=== PATIENT | female | born 1990 ===

== ENCOUNTER 2016-11-01 21:40 | Emergency (ER) | payer MEDICAID ==
[2016-11-01 22:06] VITALS: BMI 32.3
--- NOTE | 2016-11-01 23:58 | OBHP ---
Datetime: 11/01/2016 22:25 IP Adm Impression: , intrauterine IP Admit Plan: Observation/Evaluation; Discharge home Admit Comment, IP Provider: 26y/o , EGA 32+2wks presents with complaints of vomiting and diarrhe a x 1 day. She is tolerating liquids -gatorade/juice. Feeling better at present. 'Just wanted to make sure everything was ok. 'Denies h/a, visual sx, dizziness. care [facility] next appt 2w...chart rev'd o: as above. tachycardia a: IUP at 32+2wks, with gastroenteritis that is resolved Patient feeling better, would like to go home. p: plenty of fluids BRAT diet discussed with patient. return to ED if sx worsen or continue. Nikolas Hartley PGY1 Ob hospitalist debbie. Pt was seen and examined by me.Agree with note. MAHNDO Pelvic Type - PN: Not Done Extremities - PN: Normal Abdomen - PN: Normal Back - PN: Normal Breast - PN: Normal Lungs - PN: Normal Heart - PN: Normal Thyroid - PN: Normal Neurologic - PN: Normal HEENT - PN: Normal General - PN: Normal FHR - Baseline A Provider: 140 Contraction Comments Provider: 0 Comments, ACOG Physical Exam: ROS: General: no weakness; no fatigue HEENT: no HOLGUIN; no visual dist CV: no palpitations; no no CP GI: noN/V no diarhea No epigastric pain; non radiating : no F/U/D MS: No joint pain IP Hx Assessment: The History has been Reviewed and is Current EGA AdmitDate IP: 32.2 Vital Signs Provider: Reviewed IP Chief Complaint: Illness NICHD Variability Prov Fetus A: Moderate 6-25bpm FHR Category Provider Fetus A: Category I NICHD Decel Fetus A IP Provider: None Genitourinary Exam: Normal DTRs - PN: Normal
--- NOTE | 2016-11-02 | OBDCSUM ---
Datetime: 11/01/2016 22:31 Discharged to, Provider: Home Follow up at, Provider: BRANDON Ortiz Instr Activity: Normal activity Disch Instr Diet: Regular Discharge Time: 11/01/2016 22:30 Follow up in weeks, Provider: November 15, 2016 Disch Referrals: None Disch Activity Restrictions: No lifting; No driving; No sexual activity; Nothing in vagina - Interco urse, tampons, douche Discharge Diagnosis Prov Other: Gastroenteritis
--- NOTE | 2016-11-03 14:25 | OBHP ---
Datetime: 11/03/2016 14:16 IP Adm Impression: , intrauterine ; No Active Labor IP Admit Plan: Observation/Evaluation Admit Comment, IP Provider: 26-year-old 010 at 32 weeks and 4 days gestational age presents to OB ED complaining of diarrhea and nausea and vomiting for approximately 3 days. Patient reports the symptoms have improved but patient reports episode of vomiting this morning. Patient states that over all she is able to keep food and fluids down. No contractions, vaginal bleeding, leakage of fluids. P renatal records reviewed. Otherwise, patient without complaints. Past medical history none Past surgical history none Medications vitamins No known drug allergies Obstetrical history elective termination of 1 Social history no tobacco, no drugs, no alcohol Physical exam: Deferred physical exam findings Assessment: 18-year-old at 32 weeks gestational age with symptoms of mild gastroenteritis. Both matern al well-being and well-being reassuring at this time. Plan: IV fluid hydration Check labs. Check CBC, CMP, UA, LDH, uric acid Continue observation Consider discharge home if patient remains stable and labs within normal limits. I discussed plan with patient and all patient questions answered. Pelvic Type - PN: Adequate Extremities - PN: Normal Abdomen - PN: Normal Back - PN: Normal Breast - PN: Normal Lungs - PN: Normal Heart - PN: Normal Thyroid - PN: Normal Neurologic - PN: Normal HEENT - PN: Normal General - PN: Normal FHR - Baseline A Provider: 120s Contraction Comments Provider: none Comments, ACOG Physical Exam: ROS: General: no weakness; no fatigue HEENT: no HOLGUIN; no visual dist CV: no palpitations; no no CP GI: noN/V no diarhea No epigastric pain; non radiating : no F/U/D MS: No joint pain IP Hx Assessment: The History has been Reviewed and is Current EGA AdmitDate IP: 32.4 Vital Signs Provider: Reviewed; Within Normal Limits IP Chief Complaint: Illness NICHD Variability Prov Fetus A: Moderate 6-25bpm NICHD Accel Fetus A IP Provider: 15X15 FHR Category Provider Fetus A: Category I NICHD Decel Fetus A IP Provider: None Genitourinary Exam: Normal DTRs - PN: Normal
== END 2016-11-01 22:40 | disposition home or self-care (01) ==
LOC: H.EROB2 21:40
DX: O26.93 Pregnancy related conditions, unspecified, third trimester (principal); K52.9 Noninfective gastroenteritis and colitis, unspecified; Z3A.32 32 weeks gestation of pregnancy

== ENCOUNTER 2016-11-03 12:09 | Emergency (ER) | payer MEDICAID ==
[2016-11-03 12:09] VITALS: BMI 32.3
[2016-11-03] MEDS ORDERED: Lactated Ringer's 1,000 ML IV SCH (15:45)
[2016-11-03 16:49] LABS: MEAN CELL VOLUME 82.5 fl (81.0-99.0); MEAN CORPUSCULAR HEMOGLOBIN 27.5 pg (27.0-31.0); MEAN CORPUSCULAR HGB CONC 33.3 g/dL (33.0-37.0); RED CELL DISTRIBUTION WIDTH 14.4 % (11.5-14.5); WHITE BLOOD COUNT 6.9 K/uL (4.8-10.8)
[2016-11-03 17:01] LABS: ALB/GLOB RATIO 1.1 (1.0-2.1); ALKALINE PHOSPHATASE 161 U/L (38-126); ALT/SGPT 53 U/L (9-52); AST/SGOT 64 U/L (14-36); BILIRUBIN,TOTAL 0.7 mg/dl (0.2-1.3); BLOOD UREA NITROGEN 8 mg/dl (7-17); CALCIUM 9.4 mg/dL (8.4-10.2); CARBON DIOXIDE 20 mmol/L (22-30); CHLORIDE 105 mmol/L (98-107); GFR AFRICAN-AMERICAN > 60; GLUCOSE,RANDOM 57 mg/dL (65-105); POTASSIUM 3.7 MMOL/L (3.6-5.0); SODIUM 139 mmol/l (132-148); TOTAL PROTEIN 6.7 G/DL (6.3-8.2); URIC ACID 5.2 mg/Dl (2.2-7.5)
[2016-11-03 18:12] LABS: AMYLASE 85 U/L (30-110); LIPASE 112 U/L (23-300)
[2016-11-03 18:33] LABS: RBC URINE 3 /hpf (0-3); URINE BACTERIA RARE (<OCC); URINE BILIRUBIN NEGATIVE (NEGATIVE); URINE BLOOD NEGATIVE (NEGATIVE); URINE COLOR AMBER (YELLOW); URINE GLUCOSE (UA) NEG (Normal); URINE KETONE 80 mg/dL (NEGATIVE); URINE LEUKOCYTE ESTERASE NEG Leu/uL (Negative); URINE PROTEIN 30 mg/dL (NEGATIVE); WBC URINE 2 /hpf (0-5)
== END 2016-11-03 18:45 | disposition home or self-care (01) ==
LOC: H.EROB2 12:09
DX: K52.9 Noninfective gastroenteritis and colitis, unspecified (principal); Z3A.32 32 weeks gestation of pregnancy

== ENCOUNTER 2016-12-20 11:37 | Emergency (ER) | payer MEDICAID ==
[2016-12-20 12:30] VITALS: BMI 32.5
[2016-12-20 14:26] LABS: RBC URINE 1 /hpf (0-3); URINE BACTERIA OCC (<OCC); URINE BILIRUBIN NEGATIVE (NEGATIVE); URINE BLOOD NEGATIVE (NEGATIVE); URINE COLOR YELLOW (YELLOW); URINE GLUCOSE (UA) NEG (Normal); URINE KETONE NEGATIVE (NEGATIVE); URINE LEUKOCYTE ESTERASE NEG Leu/uL (Negative); URINE PROTEIN NEGATIVE (NEGATIVE); URINE UROBILINOGEN 0.2-1.0 mg/dL (0.2-1.0); WBC URINE 1 /hpf (0-5)
--- NOTE | 2016-12-20 15:08 | OBHP ---
Datetime: 12/20/2016 13:53 IP Adm Impression: Term, intrauterine IP Admit Plan: Observation/Evaluation Admit Comment, IP Provider: 26yo edc 6/4 by lmp _ 12 wk us presents @ 39.2wks with c/o sudde n aonset of pelvic pressure assoc with irreg cramping. she denies srom, bleeding or decreased fm. o b hx sig for +chlam with bridgett neg. obhx: eab@ 5wks pmhx_ pshx: denies nkda shx: denies etoh, drugs or tobacco nkda medic: pnv i: 39.2wks False labor p: ua addendum: ua neg p: d/c home labor precautions. Pelvic Type - PN: Adequate Extremities - PN: Normal Abdomen - PN: Normal Back - PN: Normal Lungs - PN: Normal Heart - PN: Normal Neurologic - PN: Normal HEENT - PN: Normal General - PN: Normal FHR - Baseline A Provider: 120 Membranes, Provider: Intact Contraction Comments Provider: irregular EGA AdmitDate IP: 39.2 Vital Signs Provider: Within Normal Limits IP Chief Complaint: Uterine contractions; Maternal discomfort NICHD Variability Prov Fetus A: Moderate 6-25bpm NICHD Accel Fetus A IP Provider: 15X15 FHR Category Provider Fetus A: Category I NICHD Decel Fetus A IP Provider: None Dilatation, Provider: 0 Effacement, Provider: 0 Station, Provider: -3 Genitourinary Exam: Normal
== END 2016-12-20 15:15 | disposition home or self-care (01) ==
LOC: H.EROB2 11:37 → H.L&D 11:55 → H.EROB2 15:15
DX: O47.1 False labor at or after 37 completed weeks of gestation (principal); Z3A.39 39 weeks gestation of pregnancy

== ENCOUNTER 2016-12-27 10:00 | Emergency (ER) | payer MEDICAID ==
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
--- NOTE | 2016-12-27 11:54 | OBDCSUM ---
Datetime: 12/27/2016 11:46 Discharged to, Provider: Home Follow up at, Provider: [facility] Disch Instr Activity: Normal activity Disch Instr Diet: Regular Discharge Diagnosis, Provider: [facility] Labor - Undelivered Discharge Time: 12/27/2016 11:47 Follow up in weeks, Provider: 12/28 Disch Referrals: None
== END 2016-12-27 10:48 | disposition home or self-care (01) ==
LOC: H.EROB2 10:00 → H.L&D 10:12 → H.EROB2 10:48
DX: O47.1 False labor at or after 37 completed weeks of gestation (principal); Z3A.40 40 weeks gestation of pregnancy; O48.0 Post-term pregnancy

== ENCOUNTER 2016-12-28 01:30 | Emergency (ER) | payer MEDICAID | END 2016-12-28 02:55 | disposition home or self-care (01) | LOC: H.EROB2 01:30 | DX: O47.1 False labor at or after 37 completed weeks of gestation (principal); Z3A.40 40 weeks gestation of pregnancy; O48.0 Post-term pregnancy ==

== ENCOUNTER 2016-12-28 11:57 | Emergency (ER) | payer MEDICAID | END 2016-12-28 16:30 | disposition home or self-care (01) | LOC: H.EROB2 11:57 | DX: O47.1 False labor at or after 37 completed weeks of gestation (principal); Z3A.40 40 weeks gestation of pregnancy ==

== ENCOUNTER 2017-01-01 07:02 | Inpatient (IN) | payer MEDICAID ==
--- NOTE | 2017-01-01 07:29 | OBHP ---
Datetime: 12/28/2016 12:23 IP Adm Impression: Term, intrauterine IP Admit Plan: Discharge home Admit Comment, IP Provider: 26 y/o at 40w3d based on LMP 03/20/16 EDC 12/25/16 c/w 2nd TM u/s. Here for irregualr contractions, seen in office and found to have a nonreactive NST. +fm, no lof, no vb. Pt reports a couple of days of contractions that are about every 10 minutes now, stronger than yes terday. PNC: [facility] with [facility] Call, 10 PNV, BP wnl, 19 lb weight gain PNI: 1. chlamydia +, partner and pt treated, bridgett neg 2. declined tdap vaccine Pmhx: denies PNL: GCT 113, genetic screen low risk, O+, H/H .2, GC/chla neg, CF neg, HIV neg 3rd TM, PAP w nl, rpr neg, RI, GBS neg 11/30/16. ucx neg POBhx: 2016 termination at 5wks pshx: denies Meds: denies All: denies social hx: neg x 3 see exam above A/P: 40w3d primip in early labor 1. Fetus category 1 tracing 2. labor early, strict labor precautions given to patient 3. GBS neg 4. IOL scheduled for 41 wks 01/01/17 7:30p DC home with strict labor and kick count precautions Pelvic Type - PN: Adequate Extremities - PN: Normal Abdomen - PN: Normal Back - PN: Normal Breast - PN: Normal Lungs - PN: Normal Heart - PN: Normal Thyroid - PN: Normal Neurologic - PN: Normal HEENT - PN: Normal General - PN: Normal Presentation-Admit: Vertex FHR - Baseline A Provider: 120 Membranes, Provider: Intact Contraction Comments Provider: irregular Gestation - Est Wks by US: 40w3d EGA AdmitDate IP: 40.3 Vital Signs Provider: Reviewed; Within Normal Limits IP Chief Complaint: Uterine contractions NICHD Variability Prov Fetus A: Moderate 6-25bpm NICHD Accel Fetus A IP Provider: 15X15 FHR Category Provider Fetus A: Category I NICHD Decel Fetus A IP Provider: None Dilatation, Provider: 2 Effacement, Provider: 20 Station, Provider: -3 Genitourinary Exam: Normal DTRs - PN: Normal Datetime: 12/28/2016 02:43 Comments, ACOG Physical Exam: = ROS: General: no weakness; no fatigue HEENT: no HOLGUIN; no visual dist CV: no palpitations; no no CP GI: noN/V no diarhea No epigastric pain; non radiating : no F/U/D MS: No joint pain
[2017-01-01 07:38] VITALS: BMI 32.9
[2017-01-01] MEDS: Lactated Ringer's 1,000 ML IV SCH (08:20)
[2017-01-01 09:06] LABS: BASO # 0.1 K/uL (0.0-0.2); BASO % 0.6 % (0.0-2.0); EOS % 0.2 % (0.0-4.0); HEMATOCRIT 39.4 % (34.0-47.0); LYMPH # 1.4 K/uL (1.0-4.3); LYMPH % 9.2 % (20.0-40.0); MEAN CELL VOLUME 81.4 fl (81.0-99.0); MEAN CORPUSCULAR HEMOGLOBIN 26.8 pg (27.0-31.0); MEAN CORPUSCULAR HGB CONC 32.9 g/dL (33.0-37.0); MEAN PLATELET VOLUME 10.4 fl (7.2-11.7); MONO # 1.2 K/uL (0.0-0.8); MONO % 7.9 % (0.0-10.0); NEUT # 12.1 K/uL (1.8-7.0); NEUT % 82.1 % (50.0-75.0); NRBC % 0.1 % (0.0-0.0); PLATELET COUNT 188 K/uL (130-400); RED CELL DISTRIBUTION WIDTH 16.4 % (11.5-14.5); WHITE BLOOD COUNT 14.8 K/uL (4.8-10.8)
[2017-01-01] MEDS ORDERED: Bupivacaine HCl 0.25% PF (10 ml) Inj ONE (09:20)
[2017-01-01] MEDS ORDERED: Fentanyl/Bupivacaine HCl 250 ML EPI ONE (09:20)
--- NOTE | 2017-01-01 10:51 | OBHP ---
Datetime: 01/01/2017 07:42 IP Adm Impression: Term, intrauterine IP Admit Plan: Admit to unit; Initiate labor protocol Admit Comment, IP Provider: 26 y/o at 41w based on LMP 03/20/16 EDC 12/25/16 c/w 2nd TM u/s presents to hosp c/o irregular contractions and pelvic and lower back pain. She states pain and frequency of CTX s is often since last night. Denies vomiting, nausea, headaches, CP, palpitations or SOB. Denies VB. +FM. Patient was scheduled for IOL tonight for due dates. PNC: [facility] with Isabel Call PNI: 1. chlamydia +, partner and pt treated, bridgett neg 2. refused tdap vaccine Pmhx: denies PNL: genetic screen low risk, O+, H/H .2, GC/chla neg(11/30/16), CF neg, HIV neg 3rd TM, PAP wnl, rpr neg, RI, GBS neg 11/30/16. Hep B neg POBhx: 1 SAB at 10weeks pshx: denies Meds: PNV All: NKDA social hx: neg x 3 see exam above A/P: 41W presents for evaluation of labor - Early labor - Reassuring NST - GBS neg - IOL scheduled for 41 wks 01/01/17 7:30p - Admit to unit - Initiate labor protocol - Consult anesthesiology for Epidural - monitoring Ramu Brower PGY1 Case discussed with Dr Arechiga Addendum by Dr. Arechiga: Patient evaluated independently and I agree with the above. patient is a @ 41 wks in labor, 3100/-2, QSN=843 mod osvaldo, +accels, no decels. ctxning q 7-8 mins, will admit p atient, start IVF, CBC, type and screen, epidural for pain. Will re-evaluate once comfortable Pelvic Type - PN: Adequate Extremities - PN: Normal Abdomen - PN: Normal Back - PN: Normal Breast - PN: Normal Lungs - PN: Normal Heart - PN: Normal Thyroid - PN: Normal Neurologic - PN: Normal HEENT - PN: Normal General - PN: Normal FHR - Baseline A Provider: 130 Comments, ACOG Physical Exam: VE done by Dr Arechiga: Dil 3cm, Eff 100%, St -2 Gestation - Est Wks by US: 41.0 IP Hx Assessment: The History has been Reviewed and is Current EGA AdmitDate IP: 41.0 Vital Signs Provider: Reviewed; Within Normal Limits IP Chief Complaint: Uterine contractions; Maternal discomfort NICHD Variability Prov Fetus A: Moderate 6-25bpm NICHD Decel Fetus A IP Provider: None Dilatation, Provider: 3 Effacement, Provider: 100 Station, Provider: -2 Genitourinary Exam: Normal DTRs - PN: Normal
--- NOTE | 2017-01-01 11:19 | OBPN ---
Datetime: 01/01/2017 11:13 IP Progress Impression: Normal progression of labor IP Informed Consent Obtain: Vaginal Delivery IP Procedures: Sterile Vag Exam IP Progress Plan: Continue present management Membranes, Provider: Ruptured Contraction Comments Provider: q 7 mins FHR - Baseline A Provider: 120 IP Progress Note Comment: Patient comfortable VE=3-4/100/-1, AROM clear fluid GOU=496 mod osvaldo, + accels, no decels TOCO= ctxning q 7 mins A/P 1. Patient progressing well, now 3-4cm and AROM clear fluid 2. CEFM and TOCO 3. Re-evaluate as needed Vital Signs Provider: Reviewed; Within Normal Limits NICHD Accel Fetus A IP Provider: 15X15 NICHD Variability Prov Fetus A: Moderate 6-25bpm Dilatation, Provider: 3-4 Effacement, Provider: 100 Station, Provider: -1 NICHD Decel Fetus A IP Provider: None Datetime: 01/01/2017 07:42 Gestation - Est Wks by US: 41.0 Datetime: 12/28/2016 12:23 Presentation-Admit: Vertex FHR Category Provider Fetus A: Category I Datetime: 12/27/2016 11:45 Pool Provider: Negative
[2017-01-01 13:19] LABS: NEUTROPHIL 78 % (42-75); TOTAL CELLS COUNTED 100
[2017-01-01] MEDS ORDERED: Lidocaine 1% Inj (20ml) ONE (14:59)
[2017-01-01] MEDS ORDERED: Oxytocin 30 units/LR 500ML 30 U/500 ML BAG IV ONE (15:03)
[2017-01-02] MEDS: Lactated Ringer's 1,000 ML IV SCH ×2 (07:30)
[2017-01-02] MEDS ORDERED: Oxytocin 20 units in LR 2,000 ML IV ONE (07:37)
[2017-01-02] MEDS ORDERED: ceFAZolin 2 GM in Sodium Chloride 0.9% 100 ML IVPB ONE (07:46)
--- NOTE | 2017-01-02 07:49 | OBPN ---
Datetime: 01/02/2017 07:43 IP Progress Impression: Arrest of dilatation/descent IP Informed Consent Obtain: Section Delivery IP Procedures: Sterile Vag Exam IP Progress Plan: Deliver- Section Contraction Comments Provider: irregular contractions FHR - Baseline A Provider: 140 IP Progress Note Comment: Patient evaluated, comfortable. On exam patient is 4- 5cm dilated, has mad e little change in 24 hour period despite being ruptured and on pitocin for 24 hours. Discussed with patient at this point she is an arrest of dilation and would advise to proceed with . Nilo desir verbalized understanding and signed informed consent. Patient to be taken to the OR when available Vital Signs Provider: Reviewed; Within Normal Limits NICHD Accel Fetus A IP Provider: 15X15 NICHD Variability Prov Fetus A: Moderate 6-25bpm Dilatation, Provider: 5 Effacement, Provider: 100 Station, Provider: -1 NICHD Decel Fetus A IP Provider: None
[2017-01-02] MEDS ORDERED: Lidocaine 2% PF (10 ml) Amp ONE (08:40)
[2017-01-02] MEDS ORDERED: Morphine 1 mg/ml preservative-free Inj(Duramorph) ONE (09:52)
[2017-01-02] MEDS ORDERED: Midazolam 2 MG/2 ML VIAL ONE ×2 (09:58→10:16)
[2017-01-02] MEDS ORDERED: Oxytocin 30 units/LR 500ML 30 U/500 ML BAG IV ONE (10:00)
[2017-01-02] MEDS ORDERED: Oxycodone/Acetaminophen 5/325 mg Tab PO PRN ×2 (11:05)
--- NOTE | 2017-01-02 11:18 | OBDS ---
DELIVERY PERSONNEL Delivery Doctor: Severino Arechiga MD Scrub Nurse: Bessy Dale OBT Nib Adjuster: Luna Salas RN Anesthesiologist: Arabella Chao MD MATERNAL INFORMATION Delivery Anesthesia: Epidural Medications in Delivery: pitocin 30 mu Maternal Complications: None RN Comments: Atraumatic delivery of a viable babygirl with lusty cry at 41 weeks GA Patient tolerat ed provedure well Both patient and infant recoverying well Provider Comments: Surgeon: Dr. Arechiga Marketing Analytics Lead: Dr. Sutton Pre-operative Dx: Arrest of labor Surgery: Primary LTCS Post-operative: same Findings: live female infant, 7lbs 15 oz, cephalic, clear fluid, grossly nml tubes, ovaries, place nta, uterus EBL: 800 ml UO:150 ml Total input: Complications: none Condition stable Pathology: cord blood LABOR SUMMARY EDC: 12/25/2016 00:00 No. Babies in Womb: 1 Attempted: No Labor Anesthesia: Epidural LABOR INFORMATION Reason for Induction: Not Applicable Onset of Labor: 01/01/2017 06:00 Oxytocin: Augmentation Group B Beta Strep: Negative (Annotations: completed on 11/30/16) Antibiotics # of Doses: 1 Antibiotics Time of Last Dose: 09:00 Steroids Given: None Reason Steroids Not Administered: Not Applicable Other Reason Not Administered: not required MEMBRANES Membranes Rupture Method: Artificial Rupture of Membranes: 01/01/2017 11:14 Length of Rupture (hrs): 22.72 Amniotic Fluid Color: Clear Amniotic Fluid Amount: Moderate Amniotic Fluid Odor: Normal STAGES OF LABOR Stage 3 hrs: 0 Stage 3 min: 1 Total Time in Labor hrs: 27 Total Time in Labor min: 58 CSECTION DELIVERY Primary Indication: Failed Induction Secondary Indication: N/A CSection Urgency: Emergency CSection Incidence: Primary CSection Incision: Lower Uterine Transverse BABY A INFORMATION Infant Delivery Date/Time: 01/02/2017 09:57 Method of Delivery: Born in Route : No : N/A Forceps: N/A Vacuum Extraction: N/A Shoulder Dystocia : No SHOULDER DYSTOCIA BABY A Infant Delivery Date/Time: 01/02/2017 09:57 PRESENTATION/POSITION BABY A Presentation: Cephalic Cephalic Presentation: Vertex Breech Presentation: N/A PLACENTA INFORMATION BABY A Placenta Delivery Time : 01/02/2017 09:58 Placenta Method of Delivery: Manual Removal Placenta Status: Delivered SCORES BABY A Heart Rate 1 min: >100 bpm Resp Effort 1 min: Good Cry Reflex Irritability 1 min: Cough or Sneeze or Pulls Away Muscle Tone 1 min: Active Motion Color 1 min: Body Fithian, Extremities Blue Resuscitation Effort 1 min: N/A SCORE 1 MIN: 9 Heart Rate 5 min: >100 bpm Resp Effort 5 min: Good Cry Reflex Irritability 5 min: Cough or Sneeze or Pulls Away Muscle Tone 5 min: Active Motion Color 5 min: Body Fithian, Extremities Blue Resuscitation Effort 5 min: N/A SCORE 5 MIN: 9 Heart Rate 10 min: >100 bpm Resp Effort 10 min: Good Cry Reflex Irritability 10 min: Cough or Sneeze or Pulls Away Muscle Tone 10 min: Active Motion Color 10 min: Body Fithian, Extremities Blue Resuscitation Effort 10 min: N/A SCORE 10 MIN: 9 INFANT INFORMATION BABY A Gestational Age at Delivery: 41.0 Gestational Status: Post-term Infant Outcome : Liveborn Condition : Stable Sex: Female IDENTIFICATION/MEDS BABY A ID Band Number: [id number] ID Band Location: Left Leg; Left Arm WEIGHT/LENGTH BABY A Birthweight (gms): 3600 Infant Weight (lb): 7 Infant Weight (oz): 15 CORD INFORMATION BABY A No. Cord Vessels: 3 Nuchal Cord : N/A Cord Blood Taken: No Infant Suction: Mouth; Nose
[2017-01-02] MEDS: Lactated Ringer's 500 ML IV SCH ×3 (12:30→14:41)
[2017-01-02] MEDS: Simethicone 80 mg Chewtab PO SCH ×2 (17:11→21:58)
--- NOTE | 2017-01-02 20:00 | OP ---
PROCEDURE DATE: 01/02/2017 SURGEON: Dr. Arechiga. BULK PLANT AGENT: Dr. Sutton and , PGY-1. PREOPERATIVE DIAGNOSIS: Arrest of labor. PROCEDURE: Low transverse section. POSTOPERATIVE DIAGNOSIS: Arrest of labor. FINDINGS: Live female , 7 pounds 15 ounces, cephalic presentation. Clear fluid. Grossly norm al tubes, ovaries, placenta, uterus. ESTIMATED BLOOD LOSS: 800 mL. URINE OUTPUT: 150 mL. TOTAL FLUID INPUT: 1300 mL. COMPLICATIONS: None. CONDITION: Stable. PATHOLOGY SPECIMEN: Cord blood. INDICATION: This is a 26-year-old at 41 weeks who presented to labor and delivery in early labo r. The patient despite being ruptured and on Pitocin for 24 hours had not progressed past 5 cm. The patient was advised at this time that she was in arrest of labor and to proceed with a for delivery. The patient was advised of risks and benefits of surgery including risks of bleeding, inf ection, damage to surrounding organs such as bowel, bladder, ureter, uterus. The patient verbalized understanding and signed informed consent. DESCRIPTION OF PROCEDURE: The patient was taken to the OR. Ancef was given preoperatively, SCDs wer e placed bilaterally. The patient prepped and draped in normal sterile fashion in dorsal supine posi tion with a leftward tilt. A Pfannenstiel skin incision was made with a scalpel and carried through the underlying layer of fascia with the Bovie. Fascia was incised in the midline. The incision exte nded laterally with the Bovie. Ines clamps were used to tent up the inferior aspect of this incisi on, which was dissected off underlying pyramidalis muscles with the Bovie. In a similar fashion, we used Ines clamps to tent up the superior aspect of this incision, which we dissected off underlying rectus abdominis muscles with the Bovie. The muscles were tented up at the midline and carefully di ssected with the aid of the scalpel. The incision was carried through superiorly and inferiorly with good visualization of all underlying organs. The lower uterine segment was visualized. The vesicou terine peritoneum was grasped with pickups and the Metzenbaum scissors and the bladder flap was creat ed. Lower uterine segment was incised in a transverse fashion with the scalpel and the uterine cavit y was entered. The incision was extended manually. The infant was delivered in cephalic presentatio n atraumatically followed by shoulders and rest of the infant atraumatically. Mouth and nose were sanford ctioned. Cord was clamped and cut. was handed off to awaiting pediatric team. Uterus was ex teriorized. There looked to be an extension on the left side of the hysterotomy site. We repaired t he uterine incision with an 0 Vicryl stitch and proceeded to imbricate with an 0 Monocryl stitch. Mu ltiple rounds of suture had to be placed at specific spots of the hysterotomy site in order to ensure tamponade. The hysterotomy site otherwise appeared to be hemostatic. The uterus was returned to th e abdomen, cleared of all clots. The hysterotomy site again was reinspected and found to be hemostat ic. The peritoneum was closed with a 2-0 Monocryl. Muscle was reapproximated with the same stitch. The subcutaneous fat was closed with plain gut suture and the skin was closed with 4-0 Monocryl. Sp onge, lap and needle counts were correct x 4. The patient was taken to recovery room in stable condi tion. There were no other complications. Jyotsna Arechiga MD cc: [id number] TT: 01/02/2017 19:59:35 ri
[2017-01-03] MEDS: Simethicone 80 mg Chewtab PO SCH ×3 (04:31→21:16)
[2017-01-03 07:10] LABS: HEMATOCRIT 32.1 % (34.0-47.0); MEAN CELL VOLUME 82.4 fl (81.0-99.0); MEAN CORPUSCULAR HEMOGLOBIN 26.6 pg (27.0-31.0); MEAN CORPUSCULAR HGB CONC 32.3 g/dL (33.0-37.0); RED CELL DISTRIBUTION WIDTH 16.7 % (11.5-14.5); WHITE BLOOD COUNT 18.2 K/uL (4.8-10.8)
--- NOTE | 2017-01-03 09:59 | OBPPN ---
Datetime: 01/03/2017 05:33 PP Pain Prov: Within normal limits PP Nausea Prov: Denies PP Flatus Prov: Yes PP BM Prov: No PP Breasts Prov: Normal PP Heart Prov: Normal PP Lungs Prov: Normal PP Abdomen/Uterus Prov: Normal PP Lochia Prov: Normal PP Vulva/Perineum Prov: Normal PP CVA Tenderness Prov: Normal PP Extremities Prov: Normal PP C/S Incision Prov: Normal PP Progress Prov: Normal PP Comments Phys Exam Prov: abd: +BS, soft, minor tenderness. ND. Fundus firm at level of umbilicus Incision: site is covered with bandage, no signs of bleeding. Ext: SCDs attached, nontender, homans neg b/l PP Impression Prov: Normal progression PP Plan Prov: Continue present management PP Progress Note Prov: pt seen and examined at bedside. No acute events overnight. Reports mild abdo ronel discomfort that is controlled with pain medications. Has not been OOB yet. Lochia is similar to menses. SCDs currently attached. Tolerating PO intake without difficulty. w/o issue. N o new complaints. A/P: 26 y/o now s/p on 01/02 @ 9:57am. Afebrile, tolerating pain with meds, doing w ell on POD#1. -continue current management -percocet 5/325mg 1 tab PO PRN Q6H for severe pain -Ibuprofen 600mg 1 tab PO PRN Q6H for moderate pain -OOB/ambulation today -continue -anticipate dc on 01/05 Chivo Escalera MD PGY1 @ 5:38am OB Hospitalist cone [employer]er - On rounds this morning, I saw this patient and agree with above note...jose cruz conway Vital Signs Provider PP: Reviewed; Within Normal Limits
[2017-01-03] MEDS: Prenatal Multivit/Folic Acid/Iron Tab PO SCH (10:18)
[2017-01-04] MEDS: Simethicone 80 mg Chewtab PO SCH ×4 (05:49→22:17)
[2017-01-04] MEDS: Prenatal Multivit/Folic Acid/Iron Tab PO SCH (09:02)
[2017-01-05] MEDS: Simethicone 80 mg Chewtab PO SCH ×2 (05:05→09:16)
[2017-01-05] MEDS: Prenatal Multivit/Folic Acid/Iron Tab PO SCH (09:16)
--- NOTE | 2017-01-05 10:56 | OBPPN ---
Datetime: 01/05/2017 05:40 PP Pain Prov: Within normal limits PP Nausea Prov: Denies PP Flatus Prov: Yes PP BM Prov: Yes PP Breasts Prov: Normal PP Heart Prov: Normal PP Lungs Prov: Normal PP Abdomen/Uterus Prov: Normal PP Lochia Prov: Normal PP Vulva/Perineum Prov: Normal PP CVA Tenderness Prov: Normal PP Extremities Prov: Normal PP C/S Incision Prov: Normal PP Progress Prov: Normal PP Comments Phys Exam Prov: abd: +BS, soft, NT/ND. Fundus firm below level of umbilicus Incision: clean, dry, intact PP Impression Prov: Normal progression PP Plan Prov: Discharge PP Progress Note Prov: pt seen and examined at bedside. No acute events overnight. Reports mild abdo ronel discomfort that is controlled with pain medications. Lochia is similar to menses. OOB/ambulatin g w/o dizziness. Tolerating PO intake without difficulty. +BM. w/o issue. No new compla ints. Denies fever/chills, headaches, visual disturbances, CP/SOB, N/V/D/C, urinary symptoms, calf pa in. A/P: 26 y/o now s/p on 01/02 @ 9:57am. Afebrile, tolerating pain with meds, doing w ell on POD#3. -discharge home today -percocet 5/325mg 1 tab PO PRN Q6H for severe pain -Ibuprofen 600mg 1 tab PO PRN Q6H for moderate pain -continue -nothing per vagina, no heavy lifting -f/u with [facility] within 1 week for wound check Chivo Escalera MD PGY1 @ 5:41am [facility] ADDENDUM: pt seen _ examined by me. agree with above assessment and pln. benefitis of reinforced. wound care and hygiene reviewed. continue pnv. Vital Signs Provider PP: Reviewed; Within Normal Limits
--- NOTE | 2017-01-05 10:58 | OBDCSUM ---
Datetime: 01/05/2017 05:43 Discharged to, Provider: Home Follow up at, Provider: [facility] Disch Instr Activity: Normal activity Disch Instr Diet: Regular Discharge Instructions, Provider: Routine instructions given Discharge Diagnosis, Provider: Term Delivered Follow up in weeks, Provider: within 1 week Disch Referrals: None Contraception discussed, Prov: Yes Disch Activity Restrictions: No exercising; No lifting; No sexual activity; Nothing in vagina - Inte rcourse, tampons, douche Discharge Comment, Provider: any worsening pain, bleeding, fever/chills and changes at wound site re port to ED. Contraception after Delivery: Control Pill/Patch; Foam/Condoms
== END 2017-01-05 12:55 | disposition home or self-care (01) | DRG 371 ==
LOC: H.EROB2 07:02 → H.L&D 07:38 → H.OB/GYN 01-02 14:10
PROVIDERS: ADMIT Obstetrics & Gynecology; ATTEND Obstetrics & Gynecology
PROC: 4A1HXCZ Monitoring of Products of Conception, Cardiac Rate, External Approach (ICD-10-PCS; 2017-01-01)
PROC: 10907ZC Drainage of Amniotic Fluid, Therapeutic from Products of Conception, Via Natural or Artificial Opening (ICD-10-PCS; 2017-01-01)
PROC: 10D00Z1 Extraction of Products of Conception, Low, Open Approach (ICD-10-PCS; principal; 2017-01-02)
DX: O48.0 Post-term pregnancy (principal); O61.9 Failed induction of labor, unspecified; O62.1 Secondary uterine inertia; Z3A.41 41 weeks gestation of pregnancy; Z37.0 Single live birth

== ENCOUNTER 2017-01-30 23:09 | Emergency (ER) | payer MEDICAID ==
[2017-01-30 23:10] VITALS: BMI 32.9
[2017-01-30 23:32] VITALS: BP 106/56; PULSE 70; RESP 16; TEMP 98.6; O2SAT 98
--- NOTE | 2017-01-31 01:13 | ED PDOC ---
HPI: Skin/Bite Injury Time Seen by Provider: 01/31/17 00:29 Chief Complaint (Nursing): Abnormal Skin Integrity Chief Complaint (Provider): Abnormal Skin Integrity History Per: Patient History/Exam Limitations: no limitations Onset/Duration Of Symptoms: Days (x few days), Worse Since (x1 day) Current Symptoms Are (Timing): Still Present Location Of Injury: Anterior: Abdomen (C section site) Quality Of Symptoms: Draining Additional Complaint(s): 26 year old female presents to ED with complaints of drainage from C section site x few days and has no past medical history. Patient states she is x1 month post that was performed by Dr. Arechiga and has a scheduled follow up appointment with her nurse practitioner later today. Notes mild bleeding from the site for a few days, and states that today there is a larger amount of blood and foul odor coming from a small opening present at the site of the C section. (-) warmth, erythema, or tenderness to the site. (-) fever, chills, nausea, vomiting, or diarrhea. Confirms that she is currently .' PCP: PANDA Past Medical History Reviewed: Historical Data, Nursing Documentation, Vital Signs Vital Signs: Last Vital Signs Temp 98.6 F 01/30/17 23:28 Pulse 70 01/30/17 23:28 Resp 16 01/30/17 23:28 BP 106/56 L 01/30/17 23:28 Pulse Ox 98 01/30/17 23:28 - Medical History PMH: No Chronic Diseases - Surgical History Surgical History: - Family History Family History: States: No Known Family Hx - Living Arrangements Living Arrangements: With Family - Social History Current smoker - smoking cessation education provided: No Ex-Smoker (has not smoked in the last 12 months): No Alcohol: None Drugs: Denies - Home Medications Home Medications: Ambulatory Orders Medication Instructions Recorded Vit No.126/Iron/Folic 1 each PO DAILY 11/03/16 [Classic Tablet] Ibuprofen [Motrin Tab] 600 mg PO Q6H PRN #30 tab 01/05/17 Sennosides A and B [Senokot Tab] 17.2 mg PO HS #8 tab 01/05/17 oxyCODONE/Acetaminophen [Percocet 1 ea PO Q6H #20 tab 01/05/17 5/325 mg Tab] Cephalexin [Keflex] 500 mg PO Q6 #40 capsule 01/31/17 - Allergies Allergies/Adverse Reactions: Allergies Allergy/AdvReac Type Severity Reaction Status Date / Time No Known Allergies Allergy Verified 11/03/16 14:10 Review of Systems ROS Statement: Except As Marked, All Systems Reviewed And Found Negative Constitutional: Negative for: Fever, Chills Gastrointestinal: Negative for: Nausea, Vomiting, Diarrhea Skin: Positive for: Other (drainage and foul odor coming from C section site. (- ) warmth, erythema, or tenderness to site) Physical Exam - Reviewed Nursing Documentation Reviewed: Yes Vital Signs Reviewed: Yes - Physical Exam Appears: Positive for: Non-toxic, No Acute Distress Head Exam: Positive for: ATRAUMATIC Skin: Positive for: Normal Color, Warm, Dry Eye Exam: Positive for: Normal appearance, EOMI, PERRL Neck: Positive for: Normal, Painless ROM, Supple Cardiovascular/Chest: Positive for: Regular Rate, Rhythm. Negative for: Murmur Respiratory: Positive for: Normal Breath Sounds. Negative for: Respiratory Distress Gastrointestinal/Abdominal: Positive for: Soft. Negative for: Normal Exam (at C section site: 1 cm opening on right side of C section wound. No active drainage right now, but foul smell is present. Site appears moist), Tenderness Back: Positive for: Normal Inspection Extremity: Positive for: Normal ROM. Negative for: Deformity Neurologic/Psych: Positive for: Alert, Oriented. Negative for: Motor/Sensory Deficits - ECG O2 Sat by Pulse Oximetry: 98 (RA) Pulse Ox Interpretation: Normal Medical Decision Making Medical Decision Makin Initial impression: wound at C section site Initial plan: * Keflex 500mg PO * Wound Cx Patient is stable to be discharged with PO antibiotics. Patient will follow up as scheduled later today with nurse practitioner. Provider expressed patient's need to keep wound dry and clean. Scribe Attestation: Documented by Sarah Norris acting as a scribe for Nomi Millard MD. Scribe Attestation: All medical record entries made by the Scribe were at my direction and personally dictated by me. I have reviewed the chart and agree that the record accurately reflects my personal performance of the history, physical exam, medical decision making, and the department course for this patient. I have also personally directed, reviewed, and agree with the discharge instructions and disposition. Disposition - Clinical Impression Clinical Impression: Wound dehiscence, - Patient ED Disposition Is Patient to be Admitted: No Counseled Patient/Family Regarding: Need For Followup - Disposition Referrals: Isabel Call CNM [Primary Care Provider] - Disposition Time: 01:00 Condition: STABLE Prescriptions: Cephalexin [Keflex] 500 mg PO Q6 #40 capsule Instructions: Wound Dehiscence (ED), Care For Your Absorbable Stitches (ED)
== END 2017-01-31 01:30 | disposition home or self-care (01) ==
LOC: H.ER 23:09
DX: O90.0 Disruption of cesarean delivery wound (principal)

== ENCOUNTER 2018-11-15 12:25 | Emergency (ER) | payer MEDICAID, OTHER ==
[2018-11-15 12:25] VITALS: BMI 32.9
[2018-11-15 12:52] VITALS: O2SAT 98
--- NOTE | 2018-11-15 13:33 | ED PDOC ---
Syncope/Near Syncope/Dizziness Time Seen by Provider: 11/15/18 13:09 Chief Complaint (Nursing): Dizziness/Lightheaded Chief Complaint (Provider): Vertigo History Per: Patient Additional Complaint(s): Patient is a 28 yo female, no PMH, presents to ED complaining of dizziness since Monday. Pt was seen at an urgent care on Monday and given meclizine. Last dose taken today in the morning. Says symptoms have not improved with the medication. Denies any other symptoms. Pt does note a "URI" last week. no congestion, coughing or headaches at this time. Past Medical History Reviewed: Nursing Documentation, Vital Signs Vital Signs: Last Vital Signs Temp 98.6 F 11/15/18 12:51 Pulse 67 11/15/18 12:51 Resp 15 11/15/18 12:51 BP 115/76 11/15/18 12:51 Pulse Ox 98 11/15/18 12:51 - Medical History PMH: No Chronic Diseases - Surgical History Surgical History: - Family History Family History: States: Unknown Family Hx - Living Arrangements Living Arrangements: With Family - Social History Current smoker - smoking cessation education provided: No - Home Medications Home Medications: Ambulatory Orders Medication Instructions Recorded Vit No.126/Iron/Folic 1 each PO DAILY 11/03/16 [Classic Tablet] Ibuprofen [Motrin Tab] 600 mg PO Q6H PRN #30 tab 01/05/17 Sennosides A and B [Senokot Tab] 17.2 mg PO HS #8 tab 01/05/17 oxyCODONE/Acetaminophen [Percocet 1 ea PO Q6H #20 tab 01/05/17 5/325 mg Tab] Cephalexin [Keflex] 500 mg PO Q6 #40 capsule 01/31/17 Methylprednisolone [Medrol Dose 4 mg PO DAILY #21 mg 11/15/18 Pack (21 tabs)] - Allergies Allergies/Adverse Reactions: Allergies Allergy/AdvReac Type Severity Reaction Status Date / Time No Known Allergies Allergy Verified 11/15/18 12:49 Review of Systems ROS Statement: Except As Marked, All Systems Reviewed And Found Negative Neurological: Positive for: Dizziness Physical Exam - Reviewed Nursing Documentation Reviewed: Yes Vital Signs Reviewed: Yes - Physical Exam Appears: Positive for: Well, Non-toxic, No Acute Distress Head Exam: Positive for: ATRAUMATIC, NORMAL INSPECTION, NORMOCEPHALIC Skin: Positive for: Normal Color, Warm, DRY Eye Exam: Positive for: EOMI, Normal appearance, PERRL ENT: Positive for: Normal ENT Inspection Neck: Positive for: Normal, Painless ROM Cardiovascular/Chest: Positive for: Regular Rate, Rhythm Respiratory: Positive for: CNT, Normal Breath Sounds Gastrointestinal/Abdominal: Positive for: Normal Exam, Soft Back: Positive for: Normal Inspection Extremity: Positive for: Normal ROM Neurological/Psych: Positive for: Awake, Alert, Normal Tone - Laboratory Results Result Diagrams: 11/15/18 15:45 11/15/18 15:45 - ECG O2 Sat by Pulse Oximetry: 98 Medical Decision Making Medical Decision Making: EKG interpreted and cleared by ED MD Vitals stable labs resulted and reviewed with Pt who demonstrated full understanding CT scan resulted WNL Pt sent home on Medrol Dose pack. Advised ENT follow up if symptoms continue Disposition - Clinical Impression Clinical Impression: Vertigo - Patient ED Disposition Is Patient to be Admitted: No - Disposition Disposition: Routine/Home Disposition Time: 17:23 Condition: STABLE Prescriptions: Methylprednisolone [Medrol Dose Pack (21 tabs)] 4 mg PO DAILY #21 mg Instructions: Vertigo (a Type of Dizziness) Forms: [employer] (Sl[place]ak)
--- NOTE | 2018-11-15 14:14 | CT ---
Date of service: 11/15/2018 PROCEDURE: CT HEAD WITHOUT CONTRAST. HISTORY: vertigo, headaches COMPARISON: None available. TECHNIQUE: Axial computed tomography images were obtained through the head/brain without intravenous contrast. Radiation dose: Total exam DLP = 941.86 mGy-cm. This CT exam was performed using one or more of the following dose reduction techniques: Automated exposure control, adjustment of the mA and/or kV according to patient size, and/or use of iterative reconstruction technique. FINDINGS: HEMORRHAGE: No intracranial hemorrhage. BRAIN: Normal lyles-white matter differentiation and density are appreciated throughout the cerebrum and cerebellum with the brainstem appearing unremarkable as well. There is no mass effect. There is no suspicious extra-axial fluid collection and the midline brain anatomy appears diffusely unremarkable. VENTRICLES: Unremarkable. No hydrocephalus. CALVARIUM: Unremarkable. PARANASAL SINUSES: Mild multifocal ethmoid sinusitis bilaterally. MASTOID AIR CELLS: Unremarkable as visualized. No inflammatory changes. OTHER FINDINGS: None. IMPRESSION: Unremarkable unenhanced CT of the Head. Incidental limited bilateral ethmoid sinusitis.
[2018-11-15 16:17] LABS: ALB/GLOB RATIO 1.2 (1.0-2.1); ALBUMIN 4.6 g/dL (3.5-5.0); BLOOD UREA NITROGEN 18 mg/dl (7-17); GFR NON-AFRICAN AMERICAN > 60
[2018-11-15 16:23] LABS: BASO # 0.1 K/uL (0.0-0.2); EOS # 0.2 K/uL (0.0-0.7); EOS % 3.3 % (0.0-4.0); HEMOGLOBIN 14.7 g/dL (12.0-16.0); LYMPH # 2.4 K/uL (1.0-4.3); LYMPH % 32.1 % (20.0-40.0); MEAN CELL VOLUME 86.7 fl (81.0-99.0); MEAN CORPUSCULAR HEMOGLOBIN 28.4 pg (27.0-31.0); MEAN CORPUSCULAR HGB CONC 32.8 g/dL (33.0-37.0); MEAN PLATELET VOLUME 10.6 fl (7.2-11.7); MONO # 0.4 K/uL (0.0-0.8); MONO % 5.4 % (0.0-10.0); NEUT # 4.3 K/uL (1.8-7.0); NEUT % 58.2 % (50.0-75.0); NRBC % 0.1 % (0.0-0.0); RBC 5.17 Mil/uL (3.80-5.20); RED CELL DISTRIBUTION WIDTH 13.7 % (11.5-14.5); WHITE BLOOD COUNT 7.5 K/uL (4.8-10.8)
[2018-11-15 16:29] LABS: ALT/SGPT 24 U/L (9-52); AST/SGOT 34 U/L (14-36)
[2018-11-15 17:31] VITALS: BP 107/70; PULSE 86; RESP 18; TEMP 98.7
--- NOTE | 2018-11-16 09:41 | CARD ---
APPROVED REPORT Date of service: 11/15/2018 EKG Measurement Heart [id number] AL 138P-1 [id number] <Conclusion> Normal sinus rhythm with sinus arrhythmia Normal ECG
== END 2018-11-15 17:04 | disposition home or self-care (01) ==
LOC: H.ER 12:25
DX: R42 Dizziness and giddiness (principal)